=== PATIENT | male | born 1970 | race Hispanic/Latino ===

== ENCOUNTER → 2017-09-04 | Outpatient (CLI) | payer BC ==
--- NOTE | 2017-09-04 11:40 | Diagnostic Imaging Report ---
PROCEDURE:L-SPINE COMPLETE COMPARISON:None. INDICATIONS:LOW BACK PAIN FINDINGS: There are 5 lumbar-type vertebral bodies. The vertebral bodies are well-aligned without evidence of spondylolisthesis. There are no fractures, lytic or blastic lesions. The disc-space heights are well-maintained. The sacroiliac joints are unremarkable. Minimal degenerative changes are evidenced by anterior osteophytosis. CONCLUSION: No acute radiographic abnormality. Dictated by: Zachary Figueroa M.D. on 09/04/2017 at 11:50 Electronically approved by: Zachary Figueroa M.D. on 09/04/2017 at 11:50
--- NOTE | 2017-09-04 11:41 | Diagnostic Imaging Report ---
PROCEDURE:SACRUM X-RAY TECHNIQUE: INDICATION: COMPARISON:None. FINDINGS:No expansile lytic or sclerotic lesion. No acute displaced fracture or dislocation. Bone mineralization is within normal limits. Soft tissues are unremarkable. CONCLUSION: No acute radiographic abnormality. Dictated by: Zachary Figueroa M.D. on 09/04/2017 at 11:51 Electronically approved by: Zachary Figueroa M.D. on 09/04/2017 at 11:51
== END ==
LOC: RAD 10:30
PROVIDERS: ATTEND Internal Medicine
DX: M54.5 Low back pain (principal)
CPT/HCPCS: 72110; 72220

== ENCOUNTER → 2024-12-25 | Day surgery (SDC) | payer BC ==
[~2024-12-25] MED LIST: AMLODIPINE BESY10 MG PO; ASPIRIN81 MG PO; FENTANYL CITRATE/PF 100MCG/2 ML INJ ONE; LACTATED RINGER'S 1,000 ML ONE; LOTENSIN40 MG PO; METFORMIN HCL500 MG PO; METOPROLOL SUCC25 MG PO; MIDAZOLAM HCL 2 MG/2 ML VIAL ONE; MULTI-VITAMIN1 EACH PO; PROPOFOL IV EMULSION 10 MG/ML 20 ML VIAL ONE
[2024-12-25 16:30] VITALS: BP 118/95; PULSE 78; RESP 16; TEMP 97.2; O2SAT 98
== END | disposition home or self-care (01) ==
LOC: OR 12:22
PROVIDERS: ATTEND Internal Medicine Gastroenterology
DX: Z12.11 Encounter for screening for malignant neoplasm of colon (principal); K64.8 Other hemorrhoids; G47.33 Obstructive sleep apnea (adult) (pediatric); E11.9 Type 2 diabetes mellitus without complications; I10 Essential (primary) hypertension; Z71.89 Other specified counseling; E78.5 Hyperlipidemia, unspecified; Z01.810 Encounter for preprocedural cardiovascular examination; Z79.84 Long term (current) use of oral hypoglycemic drugs; Z79.899 Other long term (current) drug therapy; Z79.82 Long term (current) use of aspirin; Z68.33 Body mass index [BMI] 33.0-33.9, adult; Z71.3 Dietary counseling and surveillance
CPT/HCPCS: 36415; 45378; 82948; 93005; J2250; J2704; J3010; J7121